=== PATIENT | female | born 1990 | race Caucasian/White ===

== ENCOUNTER → 2017-12-03 | Outpatient (CLI) | payer BC ==
--- NOTE | 2017-12-04 16:42 | WOMENS IMAGING REPORT ---
EXAM DESCRIPTION: 3D DIAG MAMMO BILAT NO CHG; U/S BREAST UNILAT LIMITED COMPLETED DATE/TIME: 12/03/2017 11:30 am; 12/03/2017 12:45 pm REASON FOR STUDY: BREAST PAIN; N64.4; LT BREAST NODULE R92.2; MASTODYNIA; N64.4 N64.4 MASTODYNIA COMPARISON: No prior breast imaging TECHNIQUE: Standard craniocaudal and mediolateral oblique views of each breast recorded using digita l acquisition and breast tomosynthesis. Additional right breast 90 mediolateral view with digital and tomosynthesis acquisition. Bilateral breast ultrasound was also performed. LIMITATIONS: None. FINDINGS: RIGHT BREAST MASSES: No suspicious masses. CALCIFICATIONS: No new or suspicious calcifications. ARCHITECTURAL DISTORTION: None. DEVELOPING DENSITY: None. ASYMMETRY: None noted. OTHER: No other significant findings. LEFT BREAST MASSES: A well-circumscribed low-density mammographic nodule is present in the medial left breast abo ut 4 mm diameter, 8 to 9 o'clock position. This was subsequently shown at ultrasound to represent a simple cyst. CALCIFICATIONS: No new or suspicious calcifications. ARCHITECTURAL DISTORTION: None. DEVELOPING DENSITY: None. ASYMMETRY: None noted. OTHER: No other significant finding. Read with the assistance of CAD: .[facility] - R2 C[employer]ova Version 1.3 .[facility] - R2 Cenova Version 1.3 .[facility] - R2 Cenova Version 2.4 .[facility] [place] Cenova Version 2.4 .[facility] - R2 Hospice Bereavement Coordinator Version 9.2 Right Breast ultrasound: Patient describes pain throughout the upper half of the right breast. Ultrasound was performed from the 9 o'clock to the 3 o'clock position right breast in the area of pain. No discrete cystic or imelda d lesions. No worrisome acoustic absorption. No focal findings. Left breast ultrasound: There is a small well-circumscribed mammographic nodule 4 mm in size. This is evaluated at the 8 to 9 o'clock position with ultrasound. A left breast cyst is present at the 9 o'clock position about 1 0 cm from the nipple, 4 mm in size. This correlates with the mammographic findings. An adjacent 3 m m cyst is present at the left breast 8 o'clock position. IMPRESSION: No mammographic or sonographic evidence for malignancy bilaterally. BREAST DENSITY: c. The breasts are heterogeneously dense, which may obscure small masses. BIRAD: 2 Benign findings. RECOMMENDATION: RECOMMENDED FOLLOW UP: Clinical follow-up for right breast pain. Please begin yearly bilateral screening mammography/ tomosynthesis at age 40. Patient can begin scre ening earlier if found to have an increased lifetime risk of breast cancer Nikki model assessment SPECIFIC INTERVENTION/IMAGING/CONSULTATION RECOMMENDED:No additional intervention/ imaging/consultati on needed at this time. COMMUNICATION:The negative/benign results were communicated to the patient. COMMENT: The patient has been notified of the results by letter per [place] requirements. Additional no tification policies are in place for contacting patient with suspicious or incomplete findings. Quality ID #[id number]: The [employer] recommends an annual screening mammogram for women aged 40 years or over. This facility utilizes a reminder system to ensure that all patients receive reminder letters, and/or direct phone calls for appointments. This includes reminders for routine scr eening mammograms, diagnostic mammograms, or other Breast Imaging Interventions when appropriate. Th is patient will be placed in the appropriate reminder system. The [employer] (ACR) has developed recommendations for screening MRI of the breast s in certain patient populations, to be used in conjunction with mammography. Breast MRI surveillanc e may be appropriate for women with more than 20% lifetime risk of developing breast cancer as deter mined by genetic testing, significant family history of the disease, or history of mantle radiation f or Hodgkins Disease. ACR Practice Guidelines 2008. DBT Technology DBT is a type of tomographic mammography. With conventional mammography, overlapping breast tissue ma y make lesions difficult to detect, even with good compression. DBT uses an x-ray tube that rotates a round the breast, taking images at different angles. These images are then combined to create thin sl ices of the breast that the radiologist can view as a 3D reconstruction. The [employer] unit can perform full-field digital mammograms (2D imaging); or DBT (3D imaging); or both, in a combination mode that quickly performs both the mammogram and the tomosynthesis scan while the breast is still compressed. PQRS 6045F: Fluoroscopic imaging is not utilized for breast tomosynthesis. TECHNICAL DOCUMENTATION: FINDING NUMBER: (1) ASSESSMENT: (1) JOB ID: [id number] [employer]- All Rights Reserved Reading location - IP/workstation name: [email or web address] [id number]
--- NOTE | 2017-12-04 16:42 | WOMENS IMAGING REPORT ---
EXAM DESCRIPTION: 3D DIAG MAMMO BILAT NO CHG; U/S BREAST UNILAT LIMITED COMPLETED DATE/TIME: 12/03/2017 11:30 am; 12/03/2017 12:45 pm REASON FOR STUDY: BREAST PAIN; N64.4; LT BREAST NODULE R92.2; MASTODYNIA; N64.4 N64.4 MASTODYNIA COMPARISON: No prior breast imaging TECHNIQUE: Standard craniocaudal and mediolateral oblique views of each breast recorded using digita l acquisition and breast tomosynthesis. Additional right breast 90 mediolateral view with digital and tomosynthesis acquisition. Bilateral breast ultrasound was also performed. LIMITATIONS: None. FINDINGS: RIGHT BREAST MASSES: No suspicious masses. CALCIFICATIONS: No new or suspicious calcifications. ARCHITECTURAL DISTORTION: None. DEVELOPING DENSITY: None. ASYMMETRY: None noted. OTHER: No other significant findings. LEFT BREAST MASSES: A well-circumscribed low-density mammographic nodule is present in the medial left breast abo ut 4 mm diameter, 8 to 9 o'clock position. This was subsequently shown at ultrasound to represent a simple cyst. CALCIFICATIONS: No new or suspicious calcifications. ARCHITECTURAL DISTORTION: None. DEVELOPING DENSITY: None. ASYMMETRY: None noted. OTHER: No other significant finding. Read with the assistance of CAD: .[facility] - R[facility] Cenova Version 1.3 .[facility] - R2 Cenova Version 1.3 .[facility] - R2 Cenova Version 2.4 .[facility] [place] - R2 Cenova Version 2.4 .[facility] - R2 Clerical Assistant Version 9.2 Right Breast ultrasound: Patient describes pain throughout the upper half of the right breast. Ultrasound was performed from the 9 o'clock to the 3 o'clock position right breast in the area of pain. No discrete cystic or imelda d lesions. No worrisome acoustic absorption. No focal findings. Left breast ultrasound: There is a small well-circumscribed mammographic nodule 4 mm in size. This is evaluated at the 8 to 9 o'clock position with ultrasound. A left breast cyst is present at the 9 o'clock position about 1 0 cm from the nipple, 4 mm in size. This correlates with the mammographic findings. An adjacent 3 m m cyst is present at the left breast 8 o'clock position. IMPRESSION: No mammographic or sonographic evidence for malignancy bilaterally. BREAST DENSITY: c. The breasts are heterogeneously dense, which may obscure small masses. BIRAD: 2 Benign findings. RECOMMENDATION: RECOMMENDED FOLLOW UP: Clinical follow-up for right breast pain. Please begin yearly bilateral screening mammography/ tomosynthesis at age 40. Patient can begin scre ening earlier if found to have an increased lifetime risk of breast cancer Nikki model assessment SPECIFIC INTERVENTION/IMAGING/CONSULTATION RECOMMENDED:No additional intervention/ imaging/consultati on needed at this time. COMMUNICATION:The negative/benign results were communicated to the patient. COMMENT: The patient has been notified of the results by letter per [place] requirements. Additional no tification policies are in place for contacting patient with suspicious or incomplete findings. Quality ID #[id number]: The [employer] recommends an annual screening mammogram for women aged 40 years or over. This facility utilizes a reminder system to ensure that all patients receive reminder letters, and/or direct phone calls for appointments. This includes reminders for routine scr eening mammograms, diagnostic mammograms, or other Breast Imaging Interventions when appropriate. Th is patient will be placed in the appropriate reminder system. The [employer] (ACR) has developed recommendations for screening MRI of the breast s in certain patient populations, to be used in conjunction with mammography. Breast MRI surveillanc e may be appropriate for women with more than 20% lifetime risk of developing breast cancer as deter mined by genetic testing, significant family history of the disease, or history of mantle radiation f or Hodgkins Disease. ACR Practice Guidelines 2008. DBT Technology DBT is a type of tomographic mammography. With conventional mammography, overlapping breast tissue ma y make lesions difficult to detect, even with good compression. DBT uses an x-ray tube that rotates a round the breast, taking images at different angles. These images are then combined to create thin sl ices of the breast that the radiologist can view as a 3D reconstruction. The [employer] unit can perform full-field digital mammograms (2D imaging); or DBT (3D imaging); or both, in a combination mode that quickly performs both the mammogram and the tomosynthesis scan while the breast is still compressed. PQRS 6045F: Fluoroscopic imaging is not utilized for breast tomosynthesis. TECHNICAL DOCUMENTATION: FINDING NUMBER: (1) ASSESSMENT: (1) JOB ID: [id number] [employer]- All Rights Reserved Reading location - IP/workstation name: [email or web address] [id number]
== END ==
LOC: WI 10:49
PROVIDERS: ATTEND Advanced Practice Midwife
DX: N64.4 Mastodynia (principal)
CPT/HCPCS: 76642